=== PATIENT | male | born 1940 | race Caucasian/White ===

== ENCOUNTER 2018-08-16 19:11 | Observation (INO) | payer OTHER ==
--- NOTE | 2018-08-16 18:57 | EDPHY ---
HPI/HX/ROS/PE/MDM Narrative: CHIEF COMPLAINT: Cardiac Alert HISTORY OF PRESENT ILLNESS: The patient is an anticoagulated (Xarelto) 78 y/o male with a history of atrial fibrillation arriving via EMS as a cardiac alert following a syncopal episode. Around 2 years ago the patient had a syncopal episode and subsequently had an echocardiogram and stress test. These tests revealed that the patient had atrial fibrillation. He states he is normally in atrial fibrillation. He was placed on amiodarone and subsequently developed "lung problems" which required a hospitalization. Since he developed the lung problems he has been on Prednisone and an inhaler. The patient travelled from [facility] to [place] on 07/23/18. Since arriving to [place] he has had no complaints. He denies drinking alcohol or consuming marijuana. Tonight while standing in the kitchen he started to feel "confused and like [he] was dreaming". He then sat on the floor and had a syncopal episode. He denies chest pain or an irregular heart rate at that time. When EMS arrived, the patient was answering questions appropriately. EMS performed a 12 lead EKG which revealed "peaked T-waves in leads 4, 5, and 6"; due to this EKG the patient was transported as a cardiac alert. Currently he is feeling mildly nauseous and continues to deny chest pain or shortness of breath. He denies history of an LA, stents, PE or DVT. No fever, chills, chest pain, shortness of breath, palpitations, vomiting, diarrhea, urinary complaints, headache, lightheadedness. REVIEW OF SYSTEMS: Aside from elements discussed in the HPI, a comprehensive 10-system review of systems was reviewed and is negative. PAST MEDICAL HISTORY: Atrial fibrillation, hypothyroidism. SOCIAL HISTORY: Visiting [place] from [place], retired, VITAL SIGNS: Reviewed by me GENERAL: Well-developed, well-nourished, resting comfortably in no respiratory distress. HEENT: Atraumatic. Eyes: No icterus, no injection. Mouth: moist mucous membranes. No erythema or lesions. Neck: supple with no adenopathy. LUNGS: Clear to auscultation bilaterally, no wheezes, rhonchi or rales. CARDIAC: Irregularly irregular rate, no rubs, murmurs or gallops. ABDOMEN: Soft, nontender, nondistended, bowel sounds normal. BACK: No CVA tenderness. EXTREMITIES: No trauma. No edema. Range of motion is normal throughout. NEURO: Alert and oriented, grossly nonfocal. SKIN: Warm and dry, no rash. PSYCHIATRIC: Normal mentation, no agitation. Portions of this note were transcribed by a medical appliance maker. I personally performed a history, physical exam, medical decision making, and confirmed accuracy of information the transcribed note. ED Course: The patient is an anticoagulated (Xarelto) 78 y/o male with a history of atrial fibrillation arriving via EMS as a cardiac alert following a syncopal episode. The patient denies chest pain or shortness of breath. He had a stress EKG and echocardiogram performed 2 years ago in [place] with unknown results. On exam he has an irregularly irregular rhythm. His lungs are clear bilaterally and he has no edema. EKG ordered. 1909: I met EMS upon arrival. 1913: 12-LEAD EKG: Please see the full report in [facility]. My interpretation: Atrial fibrillation with a rate of 84. I have cancelled the cardiac alert. Labs and chest x-ray ordered. 1929: Patient has a negative POC troponin. 2014: Reassessed patient and discussed imaging and laboratory findings. Patient' s son is at bedside now; he reports that the patient had a second syncopal episode following the 1st episode, before EMS was called, and subsequently hit his head. The patient does not remember this. The patient's son also reports that a similar syncopal episode occurred this January. Head CT and additional labs ordered. I discussed plan for admission which this patient and his family are comfortable with. 2024: I reviewed patient's chest x-ray which reveals cardiomegaly. No acute pulmonary edema. 2052: I consulted with the hospitalist service, Dr. Gomes accepts admission of this patient. 2054: I spoke with Dr. Suarez, radiologist, who reports that the patients head CT is negative for acute findings. Patient was transferred to the floor. MDM: Differential diagnosis of the patient's presenting complaint was considered including but not limited to arrhythmia, acute coronary syndrome, dehydration, vasovagal syncope, blood loss, medication effects, pulmonary embolism. - Data Points Imaging Results: Impression: Negative noncontrast CT of the brain. Results called to Dr. Lissette Mcintosh at 8:55 PM at the time of the interpretation. Dictated By: David Suarez MD Imaging: Discussed imaging studies w/ ehs engineer Radiologist, I viewed and interpreted images myself Laboratory Results: Laboratory Results 08/16/18 19:11 08/16/18 19:11 Medications Given: Discontinued Medications Aspirin (Aspirin) 324 mg PO EDNOW ONE Stop: 08/16/18 19:24 Last Admin: 08/16/18 19:35 Dose: Not Given Aspirin Buffered (Aspirin Ec) 325 mg PO EDNOW ONE Stop: 08/16/18 21:16 Last Admin: 08/16/18 21:13 Dose: Not Given Atorvastatin Calcium (Lipitor) 40 mg PO HS MARI Stop: 02/12/19 21:59 Last Admin: 08/16/18 23:15 Dose: 40 mg Sodium Chloride (Ns) 1,000 mls @ 100 mls/hr IV CONT MARI Stop: 02/12/19 21:29 Last Admin: 08/16/18 23:18 Dose: 1,000 mls Metoprolol Tartrate (Lopressor) 12.5 mg PO BID MARI Stop: 02/12/19 21:59 Last Admin: 08/17/18 09:20 Dose: 12.5 mg Miscellaneous Medication (Fluorometholone Acetate [Flarex]) 1 drop LEFTEYE DAILY MARI Stop: 02/13/19 08:59 Last Admin: 08/17/18 09:22 Dose: 1 drop Miscellaneous Medication (Fluticasone/Umeclidin/Vilanter [Trelegy Ellipta 100- 62.5-25]) 1 each IH DAILY MARI Stop: 02/13/19 08:59 Last Admin: 08/17/18 09:28 Dose: 1 puffs Prednisone (Prednisone) 10 mg PO DAILY MARI Stop: 02/13/19 08:59 Last Admin: 08/17/18 09:20 Dose: 10 mg Rivaroxaban (Xarelto) 20 mg PO DAILY MARI Stop: 02/13/19 08:59 Last Admin: 08/17/18 09:21 Dose: 20 mg Point of Care Test Results: Chemistry 08/16/18 19:18 POC Troponin I 0.01 ng/mL ng/mL (0.00-0.08) General Time Seen by Provider: 08/16/18 19:09 Initial Vital Signs: Initial Vital Signs Temperature (C) 36.5 C 08/16/18 19:16 Heart Rate 85 08/16/18 19:16 Respiratory Rate 16 08/16/18 19:16 Blood Pressure 160/94 H 08/16/18 19:16 O2 Sat (%) 96 08/16/18 19:16 O2 Delivery Mode Room Air Allergies/Adverse Reactions: amiodarone Allergy (Verified 08/16/18 21:14) Other-Enter Comments Home Medications: Medication Instructions Recorded Atorvastatin Calcium 40 mg PO HS 08/16/18 Fluorometholone Acetate [Flarex] 1 drop LEFTEYE DAILY 08/16/18 Fluticasone/Umeclidin/Vilanter 1 each IH DAILY 08/16/18 [Trelegy Ellipta 100-62.5-25] Metoprolol Tartrate [Lopressor 50 12.5 mg PO BID 08/16/18 mg (*)] Propylthiouracil [Propylthiouracil 50 mg PO HS 08/16/18 50mg (*)] Rivaroxaban [Xarelto] 20 mg PO DAILY 08/16/18 predniSONE 10 mg PO DAILY 08/16/18 Departure - Departure Disposition: [facility] Inpatient Acute Clinical Impression: Syncope Qualifiers: Syncope type: unspecified Qualified Code(s): R55 - Syncope and collapse Atrial fibrillation Qualifiers: Atrial fibrillation type: unspecified Qualified Code(s): I48.91 - Unspecified atrial fibrillation Condition: Good Report Scribed for: Lissette Mcintosh Report Scribed by: Amercia Drew Date of Report: 08/16/18 Time of Report: 18:57
[2018-08-16] MEDS ORDERED: ASPIRIN 81 MG CHEWABLE TAB PO ONE (19:23)
[2018-08-16 19:33] LABS: PLATELET COUNT 254 10^3/uL (150-400)
[2018-08-16] MEDS ORDERED: ASPIRIN EC 325 MG TAB PO ONE (21:15)
[2018-08-16] MEDS ORDERED: ACETAMINOPHEN 325 MG TAB PO PRN (21:25)
[2018-08-16] MEDS ORDERED: ONDANSETRON 4 MG/2 ML VIAL IVP PRN (21:25)
[2018-08-16] MEDS ORDERED: NS 1,000 ML IV SCH (21:30)
--- NOTE | 2018-08-16 21:58 | GHP ---
DATE OF ADMISSION: 08/16/2018 CHIEF COMPLAINT: Syncope. HISTORY OF PRESENT ILLNESS: The patient is a 78-year-old male, who comes in with a syncopal event. He has a history of recurrent syncope. He had his first one 2 years ago and another one in January. He had a stress echo at the time of his initial syncopal event and had a regular echocardiogram last January when he had another event. He lives in [place] and is currently visiting. He has had overnight o bservation with each syncopal event, and they have been unremarkable. He wore a 24-hour Holter that was unremarkable. Today he was standing in the kitchen when suddenly he had full visual hallucinations and sudden onset of confusion and he knew he was likely going to pass out. This is very similar to the symptoms he h ad prior to his previous events. He then had a complete loss of consciousness but was able to gradua lly bring himself to the ground. He woke up, and then had a 2nd episode 2 minutes later and on the 2 nd episode he did hit his head. There was no chest pain or shortness of breath. PAST MEDICAL HISTORY: 1. Atrial fibrillation. 2. Amiodarone lung toxicity. 3. Hyperthyroidism. 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 MEDICATIONS: Please see computer record for full detailed list. ALLERGIES: No known drug allergies. SOCIAL HISTORY: Never been a smoker. He drinks alcohol at home in [place] but has not had any for 3 weeks since he has been visiting here. He is staying with his son. Denies any drug use. He has a flight home to [place] this upcoming Wednesday. Patient is very active at baseline. During this vi sit he went skiing at [facility]. REVIEW OF SYSTEMS: Complete review of systems obtained. Review of systems negative regarding consti tutional, HEENT, GI, pulmonary, vascular, , hematology, skin, musculoskeletal, endocrine, psych, ex cept for positives as in HPI. FAMILY HISTORY: Reviewed, noncontributory to presenting complaint. PHYSICAL EXAMINATION: GENERAL APPEARANCE: Well-developed male, in no acute distress. VITAL SIGNS: Temperature 36.5, pulse 79, blood pressure 160/94, saturating 98% on room air. EYES: Normal conjun ctivae. Pupils react to light. ENT: Normal ears, nose. Hearing intact. Normal teeth. Oropharynx moist. NECK: Trachea midline. No thyromegaly. CHEST: Normal respiratory effort. Lungs clear to auscultation bilaterally. CARDIOVASCULAR: Regular rate and rhythm. No murmur. No lower extremity edema. ABDOMEN: Soft, nontender. No hepatosplenomegaly. SKIN: Warm, dry, intact. No rash. MUSC ULOSKELETAL: No cyanosis or clubbing. Strength 5/5 upper and lower extremities. NEURO: Cranial ne rves intact. Normal sensation to light touch. PSYCH: Alert and oriented x3. Normal affect. Marion l judgment. Normal memory. DIAGNOSTIC DATA: White count 8.75, hematocrit 46.4, platelets 254, sodium 138, potassium 4.8, chlori de 108, bicarb 21, BUN 21, creatinine 1.0, glucose 112. Troponin is negative. D-dimer is negative. EKG viewed by me, my personal interpretation is atrial fibrillation, rate controlled. Chest x-ray i s negative. Head CT is negative. This case was discussed with Dr. Lissette Mcintosh in the emergency [place] regarding ER course. ASSESSMENT AND PLAN: 1. Syncope. We will admit to observation. Watch on telemetry over night. I will hold off on order ing another echocardiogram since he just had 1 in [place] recently and plans to fly home imminently later this week. This syncopal event is exactly the same as previous events. We will check a TSH a nd orthostatics. He could consider more intensive monitoring to be arranged with his solo musician jane vicente in [facility]. He may benefit from something like a LINQ device if it is available. 2. Amiodarone lung toxicity. He is now chronically on prednisone which will be continued. 3. Hyperthyroidism. He also blames this on the amiodarone. He is on PTU. We will check a TSH. 4. Atrial fibrillation. Continue Xarelto and metoprolol at his usual doses. Will watch for tachyca rdia or bradycardia episodes in the atrial fibrillation. CODE STATUS: Full. ADMISSION STATUS: Will admit to observation. We will re-evaluate tomorrow regarding ongoing need fo r hospitalization. DVT PROPHYLAXIS: He is low risk given his chronic anticoagulation. /[id number]/MODL
[2018-08-16] MEDS ORDERED: ATORVASTATIN CALCIUM 40 MG TAB PO SCH (22:00)
--- NOTE | 2018-08-16 22:47 | CPEKG ---
Test Reason : OPEN Blood Pressure : / mmHG Vent. Rate : 084 BPM Atrial Rate : 133 BPM P-R Int : 210 ms QRS Dur : 091 ms QT Int : 381 ms P-R-T Axes : 000 054 020 degrees QTc Int : 451 ms Atrial fibrillation Confirmed by Lissette Mcintosh ([id number]) on 08/16/2018 10:47:01 PM Referred By: Confirmed By:Lissette Mcintosh
[2018-08-16] MEDS: METOPROLOL TARTRATE 25 MG TAB PO SCH (23:15)
[2018-08-17] MEDS ORDERED: Fluticasone/Umeclidin/Vilanter [Trelegy Ellipta 100-62.5-25] IH SCH (09:00)
[2018-08-17] MEDS ORDERED: RIVAROXABAN 20 MG TAB PO SCH (09:00)
[2018-08-17] MEDS ORDERED: predniSONE 10 MG TAB PO SCH (09:00)
[2018-08-17] MEDS ORDERED: FLUOROMETHOLONE ACETATE LEFTEYE SCH (09:00)
[2018-08-17] MEDS: METOPROLOL TARTRATE 25 MG TAB PO SCH (09:20)
--- NOTE | 2018-08-17 10:24 | ASMTLACE ---
LACE Length of stay for Answers: Less than 1 day current admission Acuity / Level of Answers: No Care: Did the patient have an inpatient admission? Comorbidities - select Answers: Other Notes: AFib all that apply # of Emergency department Answers: 1-2 visits in the last 6 months Score: 2 Date Signed: 08/17/2018 10:24 AM Electronically Signed By:Inocencia Saucedo RN
--- NOTE | 2018-08-17 10:25 | PDDCSUM ---
Discharge Summary Discharge Summary: Date of Admission: 08/16/2018 Date of Discharge: 08/17/2018 Studies: 1. Non-contrasted CT head - no acute abnormality 2. Chest x-ray - no acute abnormality Discharge Diagnoses: 1. Syncope, likely related to 2. Vasovagal episode 3. Atrial fibrillation on anticoagulation 4. Amiodarone lung and thyroid toxicity 5. Hyperthyroidism 6. H/o post-polio syndrome with RUE weakness Brief Hospital Course: 78yo M visiting from [place] with atrial fibrillation presented after episode of syncope. His symptomatology was extremely consistent with a vasovagal episode. He has had an episode of this before and recognized the symptoms and was able to sit down prior to passing out, avoiding headstrike. His work up including head CT, telemetry monitoring, labs (renal function, cardiac biomarkers, hemoglobin), chest x-ray were all unremarkable. He does not have a murmur on exam and had an echocardiogram about 6 months ago without significant valvular disease per his report; thus, we did not feel that repeating an echo was necessary. I did recommend that he follow up with his washing and screening plant supervisor in [place] to consider a cardiac event monitor such as a LINQ, if they have such a thing. He is safe to fly back to [place] this weekend. Medications: Please refer to EMR for list. No changes were made this admission. Follow Up Plan: 1. To see washing and screening plant supervisor in [place] re: [facility] cardiac event monitor 2. Consider tilt table testing Physical Exam: Vitals and telemetry reviewed, stable without arrhythmia other than rate controlled atrial fibrillation. Alert and oriented with no focal neurologic deficits besides mild chronic RUE weakness, irregularly irregular with normal rates and no murmurs on cardiac exam, lungs clear, abdomen soft, no leg edema or JVD.
--- NOTE | 2018-08-17 10:27 | ASDISCHSUM ---
Discharge Information Plan Status:Home with No Needs Medically Cleared to Leave:08/16/2018 Discharge Date:08/16/2018 CM D/C Disposition:Home, Routine, Self-Care ADT D/C Disposition:Home, Routine, Self-Care Projected Discharge Date:08/16/2018 Transportation at D/C: Discharge Delay Reason: Follow-Up Date:08/16/2018 Discharge Slot: Final Diagnosis: Placement Information Patient Contact Information Contact Name:SUSHIL Relationship:Vidal Address:[address] [place] Work Phone: City:[facility] Phone: [facility]/Zip Code:[place] [address] Email: Financial Information Financial Class:HMO and PPO Plans Primary Plan Desc:[employer] Primary Plan Number:[id number] Secondary Plan Desc:[employer] Secondary Plan Number:[id number] Assessment Information LACE LACE Length of stay for Answers: Less than 1 day current admission Acuity / Level of Answers: No Care: Did the patient have an inpatient admission? Comorbidities - select Answers: Other Notes: AFib all that apply # of Emergency department Answers: 1-2 visits in the last 6 months Score: 2 Date Signed: 08/17/2018 10:24 AM Electronically Signed By:Inocencia Saucedo RN Case Management Discharge Plan Note Case Management Discharge Discharge Order Complete? Answers: Yes Patient to Obtain Answers: Independently Medications Transportation Arranged Answers: Family/Friends Discharge Comments Notes: 08/17/2018 Case Management Note Discussed with RN. Pt is independent in ADL's. Pt plans to stay with son until end of week and then fly back home to [facility]. There are no identified case management d/c needs. Case Management d/c poc: independent with follow up as directed. Date Signed: 08/17/2018 10:26 AM Electronically Signed By:Inocencia Saucedo RN Intervention Information
[2018-08-17 10:59] VITALS: BP 135/59
[2018-08-17] MEDS ORDERED: PROPYLTHIOURACIL 50 MG TAB PO SCH (21:00)
== END 2018-08-17 11:29 | disposition home or self-care (01) ==
LOC: F2W 21:49
PROVIDERS: ADMIT Internal Medicine; ATTEND Internal Medicine
DX: R55 Syncope and collapse (principal); I48.91 Unspecified atrial fibrillation; E86.0 Dehydration; T46.2X5D Adverse effect of other antidysrhythmic drugs, subsequent encounter; E03.9 Hypothyroidism, unspecified; G14 Postpolio syndrome; Z79.01 Long term (current) use of anticoagulants
CPT/HCPCS: 70450; 71046; 92523; 93005; 99285; G0378; 84484-PO; J7512